=== PATIENT | male | born 1970 | race Caucasian/White ===

== ENCOUNTER 2025-07-14 15:18 | Emergency (ER) | payer OTHER, SELFPAY ==
[2025-07-14 15:23] VITALS: BP 146/84
--- NOTE | 2025-07-14 16:57 | ED.SKININJ ---
HPI-Injury
General
Chief Complaint: Skin Surface Trauma
Source: patient
Exam Limitations: none
Time Seen by Provider: 07/14/25 16:39
History of Present Illness-Injury
Is this injury a work related problem?: No
Is pt an associate of [facility]/[place]?: No
Initial Injury comments:
Patient states he accidentally hit his leg with golf club. He has a laceration to left marino. Injury occurred just [employer]
Past History
Past History
ED Past Medical History: None
ED Past Surgical History: None
Social History
Tobacco: Non-smoker
Personal:
Living: with family
Family History
Family History: Negative Diabetes, Hypertension, Early CAD, Asthma or Cancer
Review of Systems
Review of Systems
Allergies reviewed?: Yes
All Other Systems: ROS reviewed and negative except as documented in HPI and ROS
Constitutional: Reports no symptoms
EENT: Reports no symptoms
Respiratory: Reports no symptoms
Cardiac: Reports no symptoms
ABD/GI: Reports no symptoms
: Reports no symptoms
Musculoskeletal: Reports joint pain (pain to left marino)
Skin: Reports other (laceration, hematoma left marino)
Neurological: Reports no symptoms
Psychiatric: Reports no symptoms
Skin Exam
Laceration
Left Lower Leg:
Length in cm: 1.5
Orientation: horizontal
Type of Laceration: simple
Any active bleeding?: no active bleeding
Distal skin color and temperature: normal-warm & good color
Normal distal neurovascular exam: Yes
Range of motion: full
Phy Exam
General Physical Exam
General Presentation: well appearing and no apparent distress
General age: appears stated age
General Skin: warm and dry
General Habitus: normal
General Mental: alert
Musculoskeletal Exam
Musculoskeletal Exam: full ROM and neuro vasc intact
Skin Exam
Skin Exam: normal color, warm/dry and no rash
Psychiatric Exam
Psychiatric Exam: normal mood/affect
Course
Orders/Labs/Results
Orders:
Orders
07/14/25 15:39
CR Leg Tibia/fibula Left 2 Vw Urgent
Comment:
Reason For Exam: injury/nwb
Vital Signs
Initial and Last Documented VS:
Initial Vital Signs
Temp Pulse Resp BP Pulse Ox
98.5 F 85 16 146/84 97
07/14/25 15:23 07/14/25 15:23 07/14/25 15:23 07/14/25 15:23 07/14/25 15:23
Last Documented Vital Signs
Temp Pulse Resp BP Pulse Ox
98.5 F 85 16 146/84 97
07/14/25 15:23 07/14/25 15:23 07/14/25 15:23 07/14/25 15:23 07/14/25 16:57
Procedures
Laceration Closure
Left Lower Leg:
Status of Wound: clean
Description of Wound Edges: sharp
Preparation: cleaned with saline and cleaned with Betadine
Anesthesia: 1% Lidocaine with epi
Revision/Debridement: routine- no revision
Wound exploration: explored to base- no FB
Type of Closure: single layer closure
Skin Closure Material: 4-0 nylon
*Radiology
Radiology exam reviewed: radiology read reviewed
*Pulse Oximetry
SaO2: 97
Oxygen Mode of Delivery: Room air
Patient hypoxic: no
*Critical Care Note
Total Time (30-74mins, 75-104mins- exclusive of procedures): Not Applicable
Update Note
Update Note:
Patient to ED for laceration repair to left marino. Closure completed bedside without incident. Xray reviewed, no evidence of fracture. Dressing applied by RN. He is discharged home and rochelle follow up with PCP for suture removal in 7-10 days. given
instructions on s/s to return to ED and he is agreeable to plan.
ED Attending Note
-
Portions of this chart may have been created with voice recognition software.� Occasional wrong word or��sound alike� substitutions may have occurred due to the inherent limitations of voice recognition software.
Discharge Plan
Departure
Patient Disposition: Home (Routine Discharge)
Date of Disposition: 07/14/25
Time of Disposition: 16:55
Patient with high blood pressure during this ER visit?: No
Condition: Good
Covid-19: Not Applicable
Discharge Problem:
Laceration of leg
Instructions: Laceration Repair With Stitches (DC), RICE Therapy
Prescriptions:
No Action
oxycodone-acetaminophen 5 MG/325 MG tablet
1 tab PO R TID
Referrals:
Richie Bellamy DO [Family Provider, Family Practice]
Referral Note: Sutures can be removed in 7-10 days
Activity Restrictions/Additional Instructions:
Return to the emergency department for fever/chills, increasing pain/redness/swelling to your leg, or for any further concerns.
Interventions
Interventions:
*Risk Screen - Suicide Last Done: 07/14/25 15:23
*General Assessment Last Done: 07/14/25 15:23
*Neglect/Abuse Screening Last Done: 07/14/25 15:37
*ED- Fall Risk Assessment Last Done: 07/14/25 15:23
*ED COVID-19 Vaccine History Last Done: 07/14/25 15:23
*Nursing Disposition Last Done: 07/14/25 17:23
ED-Skin Assessment Last Done: 07/14/25 15:37
Discharge Date and Time
Print Language: STATELESS
== END 2025-07-14 17:23 | disposition home or self-care (01) ==
LOC: EMR 15:18
PROVIDERS: EMERGENCY PHYSICIAN Emergency Medicine; FAMILY PHYSICIAN Family Medicine
DX: S81.812A Laceration without foreign body, left lower leg, initial encounter (principal); W21.89XA Striking against or struck by other sports equipment, initial encounter
CPT/HCPCS: 12001; 99283; 73590